=== PATIENT | male | born 1945 | race Caucasian/White ===

== ENCOUNTER 2016-09-26 02:55 | Inpatient (IN) | payer MEDICARE ==
[~2016-09-26] VITALS: Ht 172.7 cm; Wt 66.3 kg
[2016-09-26] MEDS ORDERED: OLAN10TA9 PO (03:12)
[2016-09-26] MEDS ORDERED: OMEP-110 PO (03:12)
[2016-09-26] MEDS ORDERED: LORA1TAB PO (03:12)
[2016-09-26] MEDS ORDERED: NITR50CA PO (03:12)
[2016-09-26] MEDS ORDERED: [UNRECOGNIZED DRUG - CODE] EC (03:12)
[2016-09-26] MEDS ORDERED: CARB1TAB46 PO (03:12)
[2016-09-26] MEDS ORDERED: BUSP10TA PO (03:12)
[2016-09-26] MEDS ORDERED: VENL100T PO (03:12)
[2016-09-26] MEDS ORDERED: SIME180C44 PO (03:12)
[2016-09-26] MEDS ORDERED: MORPHINE SULFATE 4 MG/ML, 1ML ONE (03:27)
[2016-09-26] MEDS ORDERED: MORPHINE SULFATE 4 MG/ML, 1ML IVPush ONE (03:30)
[2016-09-26 04:56] LABS: BLOOD UREA NITROGEN 23 mg/dL (7-18)
[2016-09-26] MEDS ORDERED: ACETAMINOPHEN 325 MG TABLET PO PRN (05:30)
[2016-09-26] MEDS ORDERED: POLYETHYLENE GLYCOL 17 GM PACKET PO PRN (05:30)
[2016-09-26] MEDS ORDERED: ONDANSETRON 2MG/ML, 2ML IVPush PRN (05:30)
[2016-09-26] MEDS ORDERED: LABETALOL 5MG/ML, 20ML IVPush PRN (05:30)
[2016-09-26] MEDS ORDERED: TEMAZEPAM 15 MG CAPSULE PO PRN (05:30)
[2016-09-26] MEDS ORDERED: LORazepam 1MG TABLET PO PRN (05:30)
[2016-09-26 06:35] VITALS: BP 104/70
[2016-09-26] MEDS: LEVODOPA HOMEMEDPO SCH (09:00)
[2016-09-26] MEDS: SENNA/DOCUSATE TABLET PO SCH (09:00)
[2016-09-26] MEDS: BUSPIRONE 10 MG TABLET PO SCH ×3 (09:00→21:10)
[2016-09-26] MEDS: VENLAFAXINE 50MG TABLET PO SCH (09:00)
[2016-09-26] MEDS: CARBIDOPA HOMEMEDPO SCH (09:00)
[2016-09-26] MEDS: OLANZAPINE 10 MG TABLET PO SCH (09:00)
[2016-09-26] MEDS: SODIUM CHLORIDE 0.9% 1,000 ML IV SCH ×2 (09:57→23:26)
[2016-09-26] MEDS: HEPARIN 5,000 UNITS/ML, 1ML SQ SCH ×2 (10:03→17:11)
[2016-09-26] MEDS: morphine SULFATE 10 MG/ML, 1ML IVPush PRN ×2 (10:04→17:18)
[2016-09-26 15:37] VITALS: BP 111/59
[2016-09-26 15:42] VITALS: BP 104/70
[2016-09-26 19:44] VITALS: BP 104/65
[2016-09-26] MEDS: OXYcodone IR 5MG TABLET PO PRN (21:10)
[2016-09-27] MEDS: HEPARIN 5,000 UNITS/ML, 1ML SQ SCH ×2 (01:00→09:00)
[2016-09-27 02:20] VITALS: BP 106/53
[2016-09-27 06:19] LABS: ASPARTATE AMINO TRANSFERASE 48 U/L (15-37); BLOOD UREA NITROGEN 18 mg/dL (7-18)
[2016-09-27 07:50] VITALS: BP 112/52
[2016-09-27] MEDS: VENLAFAXINE 50MG TABLET PO SCH (08:54)
[2016-09-27] MEDS: BUSPIRONE 10 MG TABLET PO SCH ×3 (08:54→21:51)
[2016-09-27] MEDS: OLANZAPINE 10 MG TABLET PO SCH (08:54)
[2016-09-27] MEDS: SENNA/DOCUSATE TABLET PO SCH (08:55)
[2016-09-27] MEDS: CARBIDOPA HOMEMEDPO SCH (09:00)
[2016-09-27] MEDS: LEVODOPA HOMEMEDPO SCH (09:00)
[2016-09-27] MEDS: SODIUM CHLORIDE 0.9% 1,000 ML IV SCH ×2 (09:05→21:00)
[2016-09-27] MEDS: morphine SULFATE 10 MG/ML, 1ML IVPush PRN (09:05)
[2016-09-27] MEDS ORDERED: LACTATED RINGERS 1,000 ML IV SCH (09:39)
[2016-09-27] MEDS ORDERED: FENTANYL PF 100 MCG/2ML ONE (11:58)
[2016-09-27] MEDS ORDERED: KETAMINE 10 MG/ML, 20ML ONE (11:58)
[2016-09-27] MEDS ORDERED: NEOSPORIN OINT, 15GM ONE (11:59)
[2016-09-27] MEDS ORDERED: BUPIVACAINE/PF 0.5% ONE (12:17)
[2016-09-27] MEDS ORDERED: PHENYLEPHRINE 10 MG/ML ONE (12:26)
[2016-09-27] MEDS ORDERED: CEFAZOLIN 1,000 MG ONE (12:26)
[2016-09-27] MEDS ORDERED: PROPOFOL 10 MG/ML, 20ML ONE (12:26)
[2016-09-27] MEDS ORDERED: BACITRACIN/POLYMIXIN B SULFATE OINT 14 GM TP ONE (12:53)
[2016-09-27] MEDS ORDERED: METOPROLOL 1 MG/ML, 5ML IV PRN (13:30)
[2016-09-27] MEDS ORDERED: ACETAMINOPHEN 325 MG TABLET PO PRN (13:30)
[2016-09-27] MEDS ORDERED: HYDROcodone/APAP 7.5-325MG/15ML UDC PO PRN ×2 (13:30→16:30)
[2016-09-27] MEDS ORDERED: hydrALAzine 20 MG/ML, 1ML IV PRN (13:30)
[2016-09-27] MEDS ORDERED: ALBUTEROL/IPRATROPIUM 2.5MG/0.5MG, 3 ML NPPB PRN (13:30)
[2016-09-27] MEDS ORDERED: FENTANYL PF 100 MCG/2ML IV PRN (13:30)
[2016-09-27] MEDS ORDERED: HYDROmorphone 1 MG/ML, 1ML IV PRN ×2 (13:30→16:30)
[2016-09-27] MEDS ORDERED: ONDANSETRON 2MG/ML, 2ML IV PRN (16:30)
[2016-09-27] MEDS ORDERED: DIPHENHYDRAMINE 25 MG CAPSULE PO PRN (16:30)
[2016-09-27] MEDS: KETOROLAC 30 MG/1 ML IV SCH (17:07)
[2016-09-27] MEDS: OXYcodone/APAP 5/325MG TABLET PO PRN (19:23)
[2016-09-27 19:51] VITALS: BP 101/57
[2016-09-27] MEDS: CEFAZOLIN PMX 1GM/50ML 50 ML IVPB SCH (20:07)
[2016-09-27] MEDS: DOCUSATE 100 MG CAPSULE PO SCH (21:51)
[2016-09-27 23:40] VITALS: BP 96/53
[2016-09-28] MEDS: KETOROLAC 30 MG/1 ML IV SCH ×2 (00:33→08:21)
[2016-09-28 04:07] VITALS: BP 105/67
[2016-09-28] MEDS: CEFAZOLIN PMX 1GM/50ML 50 ML IVPB SCH (04:16)
[2016-09-28] MEDS: SODIUM CHLORIDE 0.9% 1,000 ML IV SCH ×2 (04:17→16:36)
[2016-09-28] MEDS: ENOXAPARIN 40 MG/0.4 ML SQ SCH (05:48)
[2016-09-28 06:57] VITALS: BP 100/48
[2016-09-28] MEDS: SENNA/DOCUSATE TABLET PO SCH (08:22)
[2016-09-28] MEDS: OMEPRAZOLE 20 MG CAPSULE.DR PO SCH (08:22)
[2016-09-28] MEDS: OXYcodone/APAP 5/325MG TABLET PO PRN ×3 (08:22→16:35)
[2016-09-28] MEDS: OLANZAPINE 10 MG TABLET PO SCH (08:22)
[2016-09-28] MEDS: BUSPIRONE 10 MG TABLET PO SCH ×3 (08:22→21:02)
[2016-09-28] MEDS: NITROFURANTOIN 50 MG CAPSULE PO SCH (08:22)
[2016-09-28] MEDS: DOCUSATE 100 MG CAPSULE PO SCH ×2 (08:22→21:02)
[2016-09-28] MEDS: CARBIDOPA HOMEMEDPO SCH (08:23)
[2016-09-28] MEDS: LEVODOPA HOMEMEDPO SCH (08:23)
[2016-09-28] MEDS: VENLAFAXINE 50MG TABLET PO SCH (08:23)
[2016-09-28] MEDS: SIMETHICONE 125 MG CHEW TAB PO SCH (08:23)
[2016-09-28 15:01] VITALS: BP 92/55
[2016-09-28 21:00] VITALS: BP 92/47
[2016-09-29 02:19] VITALS: BP 104/59
[2016-09-29] MEDS: SODIUM CHLORIDE 0.9% 1,000 ML IV SCH ×2 (02:34→13:16)
[2016-09-29] MEDS: OXYcodone IR 5MG TABLET PO PRN ×3 (04:02→12:34)
[2016-09-29] MEDS: ENOXAPARIN 40 MG/0.4 ML SQ SCH (05:26)
[2016-09-29 07:01] VITALS: BP 111/62
[2016-09-29] MEDS: VENLAFAXINE 50MG TABLET PO SCH (08:31)
[2016-09-29] MEDS: BUSPIRONE 10 MG TABLET PO SCH (08:31)
[2016-09-29] MEDS: NITROFURANTOIN 50 MG CAPSULE PO SCH (08:32)
[2016-09-29] MEDS: CARBIDOPA HOMEMEDPO SCH (08:32)
[2016-09-29] MEDS: DOCUSATE 100 MG CAPSULE PO SCH (08:32)
[2016-09-29] MEDS: OLANZAPINE 10 MG TABLET PO SCH (08:32)
[2016-09-29] MEDS: SENNA/DOCUSATE TABLET PO SCH (08:32)
[2016-09-29] MEDS: SIMETHICONE 125 MG CHEW TAB PO SCH (08:32)
[2016-09-29] MEDS: LEVODOPA HOMEMEDPO SCH (08:32)
[2016-09-29] MEDS: OMEPRAZOLE 20 MG CAPSULE.DR PO SCH (08:32)
[2016-09-29] MEDS ORDERED: HYDR15SO3 PO (09:04)
[2016-09-29 12:22] VITALS: BP 111/69
[2016-09-29] MEDS ORDERED: POLY17PO5 PO (13:18)
[2016-09-29] MEDS ORDERED: DOCU100C8 PO (13:19)
== END 2016-09-29 13:53 | disposition hospice, home (50) | DRG 470 ==
LOC: ED 05:25 → EDIP 05:53 → 4NOR 06:00
PROVIDERS: ADMIT Internal Medicine; ATTEND Internal Medicine
PROC: 0SR90J9 Replacement of Right Hip Joint with Synthetic Substitute, Cemented, Open Approach (ICD-10-PCS; principal; 2016-09-27 14:30)
DX: S72.001A Fracture of unspecified part of neck of right femur, initial encounter for closed fracture (principal); N13.30 Unspecified hydronephrosis; D63.8 Anemia in other chronic diseases classified elsewhere; D72.828 Other elevated white blood cell count; F43.9 Reaction to severe stress, unspecified; G20 Parkinson's disease; J44.9 Chronic obstructive pulmonary disease, unspecified; K59.00 Constipation, unspecified; Z51.5 Encounter for palliative care; Z66 Do not resuscitate; Z79.899 Other long term (current) drug therapy; Z87.891 Personal history of nicotine dependence; W19.XXXA Unspecified fall, initial encounter; Y93.89 Activity, other specified; Y92.128 Other place in nursing home as the place of occurrence of the external cause; Y99.8 Other external cause status; F32.9 Major depressive disorder, single episode, unspecified; Z80.9 Family history of malignant neoplasm, unspecified; R19.00 Intra-abdominal and pelvic swelling, mass and lump, unspecified site
CPT/HCPCS: 36415; 76700; 80048; 80053; 85025; 85610; 85730; 93005; 96374; C1713; J0690; J1644; J1650; J1885; J2704; J3010; J3490; C1762; C1776; J2270; J2370; J7030

== ENCOUNTER 2016-10-02 05:04 | Emergency (ER) | payer MEDICARE ==
[~2016-10-02] VITALS: Ht 177.8 cm; Wt 57.0 kg
[~2016-10-02 05:04] MED LIST: BUSP10TA PO; CARB1TAB46 PO; DOCU100C8 PO; HYDR15SO3 PO; LORA1TAB PO; NITR50CA PO; OLAN10TA9 PO; OMEP-110 PO; POLY17PO5 PO; SIME180C44 PO; VENL100T PO; [UNRECOGNIZED DRUG - CODE] EC
[2016-10-02 09:47] VITALS: BP 107/60
== END 2016-10-02 10:06 | disposition home or self-care (01) ==
LOC: ED 05:36
DX: Z46.6 Encounter for fitting and adjustment of urinary device (principal); R09.02 Hypoxemia; R62.7 Adult failure to thrive
CPT/HCPCS: 51702; 72190; 93005; 99284